=== PATIENT | female | born 1975 | race Two or more races ===

== ENCOUNTER 2017-07-28 20:31 | Emergency (ER) | payer MEDICAID, OTHER ==
[2017-07-28 20:41] VITALS: TEMP 98.1; O2SAT 94
[2017-07-28] MEDS ORDERED: NS 1,000 ML IV ONE (21:54)
[2017-07-28 22:20] LABS: PLATELET COUNT 238 10^3/uL (150-400)
[2017-07-28] MEDS ORDERED: BENZONATATE 100 MG CAP PO ONE (22:49)
[2017-07-28] MEDS ORDERED: ALBUTEROL INH PREPACK MDI TAKEHOME ONE (22:49)
--- NOTE | 2017-07-28 22:54 | EDPHY ---
H & P Time Seen by Provider: 07/28/17 21:50 HPI/ROS: HPI Cough. 42-year-old female by private vehicle with and daughter. This patient reports a nonproductive cough ongoing for 1 week. No other associated signs or symptoms. No sore throat. No fever. She reports however that the cough is not resolved in this time. She denies any myalgias or arthralgias. ROS: Constitutional: No fever, no chills. No weakness. Eyes: No discharge. No changes in vision. ENT: No sore throat. No nasal congestion or rhinorrhea. Respiratory: As above. No shortness of breath. Cardiac: No chest pain, no palpitations. Musculoskeletal: No back pain. No neck pain. No myalgias or arthralgias. Skin: No rashes. Neurological: No headache. No focal weakness or altered sensation. Past medical history: She denies any significant past medical history. No prescription medications. Social history: Nonsmoker. Here with family. No alcohol. Physical Exam: General Appearance: Alert, no distress. This patient is responding to questions appropriately and in full sentences. This patient appears well- hydrated and well-nourished. Eyes: Pupils equal and round no pallor or injection. No lid edema, erythema or injection. Respiratory: There are no retractions, lungs are clear to auscultation with good air movement bilaterally. No tachypnea. Cardiovascular: Regular rate and rhythm. No murmur. Neurological: Motor sensory function is grossly intact. Cranial nerves are normal. Gait is normal. Skin: Warm and dry, no rashes. Musculoskeletal: Neck is supple and nontender. Extremities are symmetrical. All joints range without pain or impingement. Psychiatric: No agitation. No depression. Database: EKG: Imaging: Chest x-ray PA and lateral; the cardiac mediastinal silhouette is unremarkable. Likely airway disease, with possible bilateral superimposed lower lobe pneumonia. No other acute cardiopulmonary disease process noted. Interpreted by me. Procedures: Emergency department course: Vital signs reviewed. She is moderately hypertensive. Vital signs otherwise normal. Chest x-ray obtained and reviewed by myself. 10:50 p.m., patient re-evaluated. Resting comfortably at this time. She has been up and ambulatory to the bathroom. She does not get significantly dyspneic with ambulation. Results of chest x-ray and diagnosis of bronchitis with possible superimposed pneumonia discussed with her. I discussed admission. At this time she does not want to be admitted. She feels comfortable going home. The patient competently engages in shared decision making. They demonstrate capacitance to make decisions. Plan will be to start her on Levaquin in the emergency department now. I will prescribe her this medication to take as an outpatient. She has been instructed to follow up with her primary care physician for re-evaluation within the next 1-2 days. Return to emergency department precautions were thoroughly reviewed with her. All of her questions were answered. She was discharged in good condition. Differential Diagnosis: The differential diagnosis on this patient includes but is not limited to bronchitis, viral syndrome, pneumonia. Influenza unlikely. This represents a partial list of diagnoses considered. These considerations are based on history , physical exam, past history, reassessment and diagnostic testing. Smoking Status: Never smoked Constitutional: Initial Vital Signs Temperature (C) 36.7 C 07/28/17 20:38 Heart Rate 87 07/28/17 20:38 Respiratory Rate 18 07/28/17 20:38 Blood Pressure 141/89 H 07/28/17 20:38 O2 Sat (%) 94 07/28/17 20:38 O2 Delivery Mode Room Air Allergies/Adverse Reactions: No Known Allergies Allergy (Unverified 07/28/17 20:41) Home Medications: Medication Instructions Recorded Benzonatate [Tessalon Pearles] 100 mg PO TID #12 cap 07/28/17 levOFLOXACIN [levAQUIN (*)] 750 mg PO DAILY #5 tab 07/28/17 Medical Decision Making - Diagnostics Imaging Results: Imaging Impressions Chest X-Ray 07/28/17 21:05 Impression: Suspect airways disease with possible superimposed bilateral lower lobe pneumonias. Clinical correlation is recommended. Results called and discussed with Jose E Granado MD on 07/28/2017 at 21: 56 - Data Points Laboratory Results: Laboratory Results 07/28/17 22:10 07/28/17 22:10 07/28/17 07/28/17 22:10 22:10 WBC 6.01 10^3/uL 10^3/uL (3.80-9.50) RBC 4.96 10^6/uL 10^6/uL (4.18-5.33) Hgb 14.5 g/dL g/dL (12.6-16.3) Hct 42.6 % % (38.0-47.0) MCV 85.9 fL fL (81.5-99.8) MCH 29.2 pg pg (27.9-34.1) MCHC 34.0 g/dL g/dL (32.4-36.7) RDW 12.9 % % (11.5-15.2) Plt Count 238 10^3/uL 10^3/uL (150-400) MPV 11.4 fL fL (8.7-11.7) Neut % (Auto) 44.4 % % (39.3-74.2) Lymph % (Auto) 37.9 % % (15.0-45.0) [place] % (Auto) 4.5 % % (4.5-13.0) Eos % (Auto) 12.0 % H % (0.6-7.6) Baso % (Auto) 1.0 % % (0.3-1.7) Nucleat RBC Rel Count 0.0 % % (0.0-0.2) Absolute Neuts (auto) 2.67 10^3/uL 10^3/uL (1.70-6.50) Absolute Lymphs (auto) 2.28 10^3/uL 10^3/uL (1.00-3.00) Absolute Monos (auto) 0.27 10^3/uL L 10^3/uL (0.30-0.80) Absolute Eos (auto) 0.72 10^3/uL H 10^3/uL (0.03-0.40) Absolute Basos (auto) 0.06 10^3/uL 10^3/uL (0.02-0.10) Absolute Nucleated RBC 0.00 10^3/uL 10^3/uL (0-0.01) Immature Gran % 0.2 % % (0.0-1.1) Immature Gran # 0.01 10^3/uL 10^3/uL (0.00-0.10) Sodium 140 mEq/L mEq/L (135-145) Potassium 3.7 mEq/L mEq/L (3.5-5.2) Chloride 105 mEq/L mEq/L (97-110) Carbon Dioxide 21 mEq/l L mEq/l (22-31) Anion Gap 14 mEq/L mEq/L (8-16) BUN 12 mg/dL mg/dL (7-23) Creatinine 1.0 mg/dL mg/dL (0.6-1.0) Estimated GFR > 60 Glucose 111 mg/dL H mg/dL (70-100) Calcium 9.7 mg/dL mg/dL (8.5-10.4) Medications Given: Discontinued Medications Sodium Chloride (Ns) 1,000 mls @ 0 mls/hr IV ONCE ONE; Wide Open PRN Reason: Protocol Stop: 07/28/17 21:55 Last Admin: 07/28/17 22:08 Dose: 1,000 mls Departure - Departure Disposition: Home, Routine, Self-Care Clinical Impression: Bronchitis, Possible pneumonia Condition: Good Instructions: Acute Bronchitis (ED), Pneumonia (ED) Additional Instructions: Read and follow provided instructions. Follow-up with your primary care physician in 1-2 days for re-evaluation as discussed. Take medication as prescribed through entire course of treatment. Albuterol meter dose inhaler: 1-2 puffs every 2-4 hours as needed for cough or shortness of breath. Return to the emergency department for worsening symptoms, worsening cough, difficulty breathing, high fever, weakness or other serious concerns. Referrals: [facility],. [Clinic] - As per Instructions Prescriptions: Benzonatate [Tessalon Pearles] 100 mg PO TID #12 cap levOFLOXACIN [levAQUIN (*)] 750 mg PO DAILY #5 tab
[2017-07-28 23:16] VITALS: BP 121/72; PULSE 83; RESP 16
== END 2017-07-28 23:14 | disposition home or self-care (01) ==
DX: J20.9 Acute bronchitis, unspecified (principal); E86.9 Volume depletion, unspecified

== ENCOUNTER 2017-08-07 18:08 | Observation (INO) | payer OTHER ==
[2017-08-07] MEDS ORDERED: IPRATROPIUM/ALBUTEROL 3 ML DEYVIAL IH ONE (18:45)
--- NOTE | 2017-08-07 18:58 | CPEKG ---
Heart Rate: 80 RR Interval: 750 P-R Interval: 136 QRSD Interval: 86 QT Interval: 372 QTC Interval: 430 P [place]: 58 QRS [place]: 38 T Wave [place]: 2 EKG Severity - NORMAL ECG - EKG Impression: SINUS RHYTHM Electronically Signed By: Jesika Wyatt 07-Aug-2017 23:14:40
[2017-08-07 19:00] LABS: PLATELET COUNT 260 10^3/uL (150-400)
[2017-08-07 19:08] LABS: INR 1.04 (0.83-1.16); PROTIME(PATIENT) 13.8 SEC (12.0-15.0)
[2017-08-07] MEDS ORDERED: predniSONE 20 MG TAB PO ONE (19:26)
[2017-08-07] MEDS ORDERED: ALBUTEROL 60 PUFFS/8 GM MDI IH PRN (19:44)
[2017-08-07] MEDS ORDERED: ONDANSETRON 4 MG/2 ML VIAL IVP PRN (19:44)
[2017-08-07] MEDS ORDERED: ACETAMINOPHEN 325 MG TAB PO PRN (19:44)
[2017-08-07] MEDS ORDERED: ONDANSETRON DISINTEGRATING 4 MG TAB PO PRN (19:44)
[2017-08-07] MEDS ORDERED: guaiFENesin/CODEINE PHOS 10 ML UDCUP PO PRN (19:47)
[2017-08-07] MEDS ORDERED: BENZONATATE 100 MG CAP PO PRN (19:48)
[2017-08-07] MEDS ORDERED: IOPAMIDOL (ISOVUE-300) 100 ML BTL ONE (20:09)
--- NOTE | 2017-08-07 21:36 | EDPHY ---
H & P Stated Complaint: pt dx pna 2 weeks ago/rx levaquin/not better/hypoxic HPI/ROS: Chief complaint: Trouble breathing History of present illness: This is a 42-year-old female who presents to the emergency department for evaluation of trouble breathing. Patient reports she was diagnosed with pneumonia 2 weeks ago at this hospital. She was treated with Levaquin which she has completed. She was starting to feel better but recently symptoms started to worsen. She reports chest congestion and trouble breathing. She was prescribed an inhaler at her last visit but has not been using it regularly. She denies fever, chest pain, pain or swelling in the legs. Review of systems: A 10 point review of systems was obtained and other than described above was negative - Personal History LMP (Females 10-55): 8-14 Days Ago Current Tetanus/Diphtheria Vaccine: Unsure - Medical/Surgical History Hx Asthma: No Hx Chronic Respiratory Disease: No Hx Diabetes: No Hx Cardiac Disease: No Hx Renal Disease: No Hx Cirrhosis: No Hx Alcoholism: No Hx HIV/AIDS: No Hx Splenectomy or Spleen Trauma: No Other PMH: pna - Social History Smoking Status: Never smoked - Physical Exam Exam: General Appearance: Alert, nontoxic. Eyes: Pupils equal and round no pallor or injection. ENT, Mouth: Mucous membranes moist. Respiratory: Patient talking in full sentences. No use of accessory muscles. Diffuse expiratory wheezing noted. Cardiovascular: Regular rate and rhythm. Gastrointestinal: Abdomen is soft and non tender, no masses, bowel sounds normal. Neurological: Alert and oriented x4. No meningismus. Skin: Warm and dry, no rashes. Musculoskeletal: Neck is supple non tender. Extremities are symmetrical, full range of motion. Psychiatric: Patient is oriented X 3, there is no agitation. Constitutional: Initial Vital Signs Temperature (C) 36.5 C 08/07/17 18:16 Heart Rate 87 18 18:16 Respiratory Rate 20 08/07/17 18:16 Blood Pressure 135/89 H 08/07/17 18:16 O2 Sat (%) 85 L 08/07/17 18:16 O2 Delivery Mode Room Air O2 (L/minute) 4 Allergies/Adverse Reactions: No Known Allergies Allergy (Verified 08/07/17 18:15) Home Medications: Medication Instructions Recorded Benzonatate [Tessalon Pearles] 100 mg PO TID #12 cap 07/28/17 levOFLOXACIN [levAQUIN (*)] 750 mg PO DAILY #5 tab 07/28/17 Ibuprofen [Motrin (*)] 200 - 400 mg PO Q6H PRN 08/07/17 Multivitamins [Multivitamin (*)] 1 each PO DAILY 08/07/17 Medical Decision Making - Diagnostics Imaging Results: Imaging Impressions Chest X-Ray 08/07/17 18:41 Impression: 1. Right lower lobe pneumonia. 2. Recommend follow up until clear. Findings and recommendations discussed with Emergency Department Physician Bobbin Loose End Finder, ELIZABETH Beckett, at 1911 hours, on August 07, 2017. Final report concurs with initial preliminary interpretation. Imaging: I viewed and interpreted images myself ED Course/Re-evaluation: Patient is discussed with my secondary supervising physician Dr. James Avila. Patient presents to the emergency department for trouble breathing after recently being diagnosed with pneumonia and treated with Levaquin. On presentation she is nontoxic. However her pulse oximetry on room air is 85%. Physical exam reveals expiratory wheezing. Chest x-ray concerning for persistent pneumonia. Blood studies are obtained and largely unremarkable including a D-dimer. CT of the chest is obtained as reported. Given concern for persistent infection and hypoxia she will be admitted to the hospitalist service for further evaluation and care. Dr. Cho is the admitting physician. He asked that the patient tbe given 60 mg of prednisone orally. He asked that antibiotics not be started until he has evaluated the patient to determine the best course of action. Plan has been discussed with the patient who voiced understanding and agreement with it. Differential Diagnosis: Included but not limited to bronchitis, pneumonia, reactive airway disease, pulmonary embolism - Data Points Laboratory Results: Laboratory Results 08/07/17 18:50 08/07/17 18:50 08/07/17 08/07/17 08/07/17 18:51 18:51 18:50 WBC RBC Hgb Hct MCV MCH MCHC RDW Plt Count MPV Neut % (Auto) Lymph % (Auto) [place] % (Auto) Eos % (Auto) Baso % (Auto) Nucleat RBC Rel Count Absolute Neuts (auto) Absolute Lymphs (auto) Absolute Monos (auto) Absolute Eos (auto) Absolute Basos (auto) Absolute Nucleated RBC Immature Gran % Immature Gran # PT 13.8 SEC SEC (12.0-15.0) INR 1.04 (0.83-1.16) APTT 32.7 SEC SEC (23.0-38.0) D-Dimer VBG Lactic Acid 1.2 mmol/L mmol/L (0.7-2.1) Sodium Potassium Chloride Carbon Dioxide Anion Gap BUN Creatinine Estimated GFR Glucose Calcium Total Bilirubin Procalcitonin 0.02 ng/mL ng/mL (0.02-0.10) Nasal Influenza A PCR Nasal Influenza B PCR RSV (PCR) 08/07/17 08/07/17 08/07/17 18:50 18:50 18:30 WBC 5.85 10^3/uL 10^3/uL (3.80-9.50) RBC 4.79 10^6/uL 10^6/uL (4.18-5.33) Hgb 13.8 g/dL g/dL (12.6-16.3) Hct 40.8 % % (38.0-47.0) MCV 85.2 fL fL (81.5-99.8) MCH 28.8 pg pg (27.9-34.1) MCHC 33.8 g/dL g/dL (32.4-36.7) RDW 13.2 % % (11.5-15.2) Plt Count 260 10^3/uL 10^3/uL (150-400) MPV 11.3 fL fL (8.7-11.7) Neut % (Auto) 50.3 % % (39.3-74.2) Lymph % (Auto) 35.9 % % (15.0-45.0) [place] % (Auto) 4.1 % L % (4.5-13.0) Eos % (Auto) 8.7 % H % (0.6-7.6) Baso % (Auto) 1.0 % % (0.3-1.7) Nucleat RBC Rel Count 0.0 % % (0.0-0.2) Absolute Neuts (auto) 2.94 10^3/uL 10^3/uL (1.70-6.50) Absolute Lymphs (auto) 2.10 10^3/uL 10^3/uL (1.00-3.00) Absolute Monos (auto) 0.24 10^3/uL L 10^3/uL (0.30-0.80) Absolute Eos (auto) 0.51 10^3/uL H 10^3/uL (0.03-0.40) Absolute Basos (auto) 0.06 10^3/uL 10^3/uL (0.02-0.10) Absolute Nucleated RBC 0.00 10^3/uL 10^3/uL (0-0.01) Immature Gran % 0.0 % % (0.0-1.1) Immature Gran # 0.00 10^3/uL 10^3/uL (0.00-0.10) PT INR APTT D-Dimer 0.35 ug/mLFEU ug/mLFEU (0.00-0.50) VBG Lactic Acid Sodium 141 mEq/L mEq/L (135-145) Potassium 3.3 mEq/L L mEq/L (3.5-5.2) Chloride 106 mEq/L mEq/L (97-110) Carbon Dioxide 21 mEq/l L mEq/l (22-31) Anion Gap 14 mEq/L mEq/L (8-16) BUN 9 mg/dL mg/dL (7-23) Creatinine 0.6 mg/dL mg/dL (0.6-1.0) Estimated GFR > 60 Glucose 115 mg/dL H mg/dL (70-100) Calcium 9.5 mg/dL mg/dL (8.5-10.4) Total Bilirubin 0.3 mg/dL mg/dL (0.1-1.4) Procalcitonin Nasal Influenza A PCR Nasal Influenza B PCR RSV (PCR) 08/07/17 18:22 WBC RBC Hgb Hct MCV MCH MCHC RDW Plt Count MPV Neut % (Auto) Lymph % (Auto) [place] % (Auto) Eos % (Auto) Baso % (Auto) Nucleat RBC Rel Count Absolute Neuts (auto) Absolute Lymphs (auto) Absolute Monos (auto) Absolute Eos (auto) Absolute Basos (auto) Absolute Nucleated RBC Immature Gran % Immature Gran # PT INR APTT D-Dimer VBG Lactic Acid Sodium Potassium Chloride Carbon Dioxide Anion Gap BUN Creatinine Estimated GFR Glucose Calcium Total Bilirubin Procalcitonin Nasal Influenza A PCR NEGATIVE FOR FLU A (NEGATIVE) Nasal Influenza B PCR NEGATIVE FOR FLU B (NEGATIVE) RSV (PCR) NEGATIVE FOR RSV (NEGATIVE) Medications Given: Discontinued Medications Albuterol/Ipratropium (Duoneb) 3 ml IH EDNOW ONE Stop: 08/07/17 18:46 Last Admin: 08/07/17 18:50 Dose: 3 ml Prednisone (Prednisone) 60 mg PO EDNOW ONE Stop: 08/07/17 19:27 Last Admin: 08/07/17 19:44 Dose: 60 mg Departure - Departure Disposition: [facility] Acute Clinical Impression: Hypoxia Pneumonia Qualifiers: Pneumonia type: due to unspecified organism Laterality: right Lung location: lower lobe of lung Qualified Code(s): J18.1 - Lobar pneumonia, unspecified organism Condition: Fair
[2017-08-07] MEDS: IPRATROPIUM/ALBUTEROL 3 ML DEYVIAL IH SCH (21:55)
[2017-08-07] MEDS ORDERED: IBUPROFEN 200 MG TAB PO PRN (22:14)
--- NOTE | 2017-08-07 22:18 | PDGENHP ---
History and Physical - Chief Complaint Acute shortness of breath - History of Present Illness Primary care provider: [facility] HPI: 42-year-old female presents with acute shortness of breath characterized as labored breathing associated with nonproductive cough, generalized discomfort , with onset approximately 2 weeks prior, initially alleviated with levofloxacin , then symptoms reoccurred. She reports that she has otherwise been able to complete her activities of daily living and she has not had any overt chest pain. On the day of presentation, the patient came into the emergency department, had an SpO2 of 85%, and was placed on supplemental oxygen. She immediately began to feel better. She then received duo nebs and prednisone, and her expiratory wheezes which were present on arrival, were alleviated. History Information - Allergies/Home Medication List Allergies/Adverse Reactions: No Known Allergies Allergy (Verified 08/07/17 18:15) Home Medications: Ibuprofen [Motrin (*)] 200 - 400 mg PO Q6H PRN 08/07/17 [Last Taken Unknown] Multivitamins [Multivitamin (*)] 1 each PO DAILY 08/07/17 [Last Taken Unknown] I have personally reviewed and updated: family history, medical history, social history, surgical history - Past Medical History Additional medical history: Recent treatment for pneumonia 10 days ago - Surgical History Reports: no pertinent surgical hx - Social History Smoking Status: Never smoked Alcohol Use: None Drug Use: None Additional social history: Physically active work, 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, 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 Review of Systems Review of Systems: ROS: 10pt was reviewed & negative except for what was stated in HPI & below Constitutional: Reports: weakness Respiratory: Reports: cough, shortness of breath Physical Exam Physical Exam: Temp Pulse Resp BP Pulse Ox 37.0 C 68 16 96/66 L 98 08/07/17 22:02 08/07/17 22:02 08/07/17 22:02 08/07/17 22:02 08/07/17 22:02 O2 (L/minute) 2 Constitutional: no apparent distress, appears nourished, not in pain Eyes: PERRL, anicteric sclera, EOMI Ears, Nose, Mouth, Throat: moist mucous membranes, hearing normal, ears appear normal, no oral mucosal ulcers Cardiovascular: regular rate and rhythym, no murmur, rub, or gallop, No edema Respiratory: reduced air movement (Cough triggered on expiration), No expiratory wheeze, No inspiratory crackles, No bronchial breath sounds, No respiratory distress Gastrointestinal: normoactive bowel sounds, soft, non-tender abdomen, no palpable masses Skin: No abrasion, No rash Neurologic: AAOx3, sensation intact bilaterally, No weakness Psychiatric: interacting appropriately, not anxious, not encephalopathic, thought process linear Lab Data & Imaging Review 08/07/17 18:50 08/07/17 18:50 WBC 5.85 10^3/uL (3.80-9.50) 08/07/17 18:50 RBC 4.79 10^6/uL (4.18-5.33) 08/07/17 18:50 Hgb 13.8 g/dL (12.6-16.3) 08/07/17 18:50 Hct 40.8 % (38.0-47.0) 08/07/17 18:50 MCV 85.2 fL (81.5-99.8) 08/07/17 18:50 MCH 28.8 pg (27.9-34.1) 08/07/17 18:50 MCHC 33.8 g/dL (32.4-36.7) 08/07/17 18:50 RDW 13.2 % (11.5-15.2) 08/07/17 18:50 Plt Count 260 10^3/uL (150-400) 08/07/17 18:50 MPV 11.3 fL (8.7-11.7) 08/07/17 18:50 Neut % (Auto) 50.3 % (39.3-74.2) 08/07/17 18:50 Lymph % (Auto) 35.9 % (15.0-45.0) 08/07/17 18:50 [place] % (Auto) 4.1 % (4.5-13.0) L 08/07/17 18:50 Eos % (Auto) 8.7 % (0.6-7.6) H 08/07/17 18:50 Baso % (Auto) 1.0 % (0.3-1.7) 08/07/17 18:50 Nucleat RBC Rel Count 0.0 % (0.0-0.2) 08/07/17 18:50 Absolute Neuts (auto) 2.94 10^3/uL (1.70-6.50) 08/07/17 18:50 Absolute Lymphs (auto) 2.10 10^3/uL (1.00-3.00) 08/07/17 18:50 Absolute Monos (auto) 0.24 10^3/uL (0.30-0.80) L 08/07/17 18:50 Absolute Eos (auto) 0.51 10^3/uL (0.03-0.40) H 08/07/17 18:50 Absolute Basos (auto) 0.06 10^3/uL (0.02-0.10) 08/07/17 18:50 Absolute Nucleated RBC 0.00 10^3/uL (0-0.01) 08/07/17 18:50 Immature Gran % 0.0 % (0.0-1.1) 08/07/17 18:50 Immature Gran # 0.00 10^3/uL (0.00-0.10) 08/07/17 18:50 PT 13.8 SEC (12.0-15.0) 08/07/17 18:50 INR 1.04 (0.83-1.16) 08/07/17 18:50 APTT 32.7 SEC (23.0-38.0) 08/07/17 18:50 D-Dimer 0.35 ug/mLFEU (0.00-0.50) 08/07/17 18:30 VBG Lactic Acid 1.2 mmol/L (0.7-2.1) 08/07/17 18:51 Sodium 141 mEq/L (135-145) 08/07/17 18:50 Potassium 3.3 mEq/L (3.5-5.2) L 08/07/17 18:50 Chloride 106 mEq/L (97-110) 08/07/17 18:50 Carbon Dioxide 21 mEq/l (22-31) L 08/07/17 18:50 Anion Gap 14 mEq/L (8-16) 08/07/17 18:50 BUN 9 mg/dL (7-23) 08/07/17 18:50 Creatinine 0.6 mg/dL (0.6-1.0) 08/07/17 18:50 Estimated GFR > 60 08/07/17 18:50 Glucose 115 mg/dL (70-100) H 08/07/17 18:50 Calcium 9.5 mg/dL (8.5-10.4) 08/07/17 18:50 Total Bilirubin 0.3 mg/dL (0.1-1.4) 08/07/17 18:50 Procalcitonin 0.02 ng/mL (0.02-0.10) 08/07/17 18:51 Nasal Influenza A PCR NEGATIVE FOR FLU A (NEGATIVE) 08/07/17 18:22 Nasal Influenza B PCR NEGATIVE FOR FLU B (NEGATIVE) 08/07/17 18:22 RSV (PCR) NEGATIVE FOR RSV (NEGATIVE) 08/07/17 18:22 Visualized and Interpreted Chest x-ray results: Yes Chest X-Ray results: other (Possible right lower lobe infiltrate) Visualized and Interpreted EKG results: Yes EKG Interpretation: Positive for: other (T-wave inversion in lead 3) Assessment & Plan Assessment: 42-year-old female presents with acute reactive airway exacerbation in the setting of recent pneumonia Plan: 1. Acute reactive airway exacerbation. New problem this provider, further workup indicated. Discussed with Ron Coppola, emergency department provider, he has reported to me the patient's airways sound reactive and wheezy -reviewed outside records including emergency department report by Dr. Jose E Granado from 07/28/2017, reporting the patient had a by lateral lower lobe pneumonia, prescribed levofloxacin -responded well to DuoNeb and prednisone in the emergency department, continue -supportive care with mucolytic, antitussive -rule out persistent pneumonia with procalcitonin level, chest CT -rule out viral precipitant with influenza -hold on antibiotics until the above information has been obtained 2. Hypokalemia. Unclear etiology, provide supplement Diet. Regular Prophylaxis. Low risk patient, SCDs Code. Full Disposition. Anticipated discharge 08/08, pending further workup and clinical stability of above.
[2017-08-07] MEDS ORDERED: POTASSIUM CL 20 MEQ TAB PO ONE (22:26)
[2017-08-07] MEDS: guaiFENesin 600 MG TAB.ER PO SCH (22:45)
[2017-08-08] MEDS: IPRATROPIUM/ALBUTEROL 3 ML DEYVIAL IH SCH ×2 (06:04→12:05)
[2017-08-08 08:07] VITALS: BP 130/75; PULSE 73; RESP 18; TEMP 98.1; O2SAT 94
[2017-08-08] MEDS: guaiFENesin 600 MG TAB.ER PO SCH (08:54)
[2017-08-08] MEDS ORDERED: MULTIVITAMINS 1 EACH TAB PO SCH (09:00)
[2017-08-08] MEDS ORDERED: predniSONE 20 MG TAB PO SCH (09:00)
--- NOTE | 2017-08-08 10:31 | HOSPPROG ---
Hospitalist Progress Note Assessment/Plan: 42-year-old female presents with acute reactive airway exacerbation in the setting of recent pneumonia * acute airway reactive disease exacerbation -duo nebs and prednisone -CT of the chest does not indicate any type of pneumonia -procalcitonin level is stable -was recently treated Levaquin -on room air now * hypokalemia -resolved *plan: dc home with f/u w [facility] Subjective: Bree feels well. Objective: Vital Signs Temp Pulse Resp BP Pulse Ox 36.7 C 73 18 130/75 H 94 08/08/17 08:00 08/08/17 08:00 08/08/17 08:00 08/08/17 08:00 08/08/17 08:00 Laboratory Results 08/08/17 05:33 08/07/17 08/08/17 08/09/17 05:59 05:59 05:59 Intake Total 100 Balance 100 PT 13.8 SEC (12.0-15.0) 08/07/17 18:50 INR 1.04 (0.83-1.16) 08/07/17 18:50 - Physical Exam Constitutional: no apparent distress, appears nourished, not in pain Eyes: PERRL Ears, Nose, Mouth, Throat: hearing normal Cardiovascular: regular rate and rhythym Respiratory: no respiratory distress, expiratory wheeze (few scattered) Gastrointestinal: normoactive bowel sounds Skin: warm Musculoskeletal: full muscle strength Neurologic: AAOx3 Psychiatric: interacting appropriately, not anxious ICD10 Worksheet Patient Problems: Problems Problem Status Onset Hypoxia Acute Pneumonia Acute
--- NOTE | 2017-08-08 12:52 | GDS ---
[f rep st] DISCHARGE SUMMARY DISCHARGE DIAGNOSES: 1. Acute airway reactive disease exacerbation. 2. Hypokalemia. HISTORY OF PRESENT ILLNESS: Briefly, the patient is a very nice, 42-year-old woman who presented in the emergency room with shortness of breath. She was recently treated for pneumonia. Today, she is feeling markedly better. She was started on steroids. HOSPITAL COURSE PER PROBLEM: 1. Acute reactive airway disease. Procalcitonin level was checked, which is stable. CT of the chest was performed, which did not show any lymphadenopathy or any type of infiltrate. She has minimal ground-glass opacities in the bilateral upper lobes. She has mild bronchitis airway disease. She also had a chest x-ray performed that showed a right lower lobe pneumonia. Recommend followup until clear. She is currently on room air. Feels like her symptoms have resolved. She will need to follow up with [facility] and get a followup with repeat chest x-ray to make sure resolution of her pneumonia. 2. Hypokalemia, resolved. DISCHARGE CONDITION: Stable. Blood pressure is 130/75, respiratory rate is 18 , pulse 73, temperature 38.7, O2 sats on room air are 94%. MEDICATIONS AT DISCHARGE: Please see the EMR. DISCHARGE INSTRUCTIONS: 1. Take the prednisone for the next 5 days as ordered. 2. An inhaler has been ordered. 3. To follow up with her primary care provider. /[id number]/MODL MTDD
== END 2017-08-08 13:07 | disposition home or self-care (01) ==
LOC: F3E 21:04
PROVIDERS: ADMIT Internal Medicine; ATTEND Internal Medicine
DX: J45.901 Unspecified asthma with (acute) exacerbation (principal); J18.9 Pneumonia, unspecified organism; E87.6 Hypokalemia
CPT/HCPCS: G0378; J7512; Q9967

== ENCOUNTER 2017-08-18 19:56 | Emergency (ER) | payer OTHER ==
[2017-08-18 20:07] VITALS: RESP 20; TEMP 98.1
--- NOTE | 2017-08-18 20:16 | CPEKG ---
Heart Rate: 87 RR Interval: 690 P-R Interval: 136 QRSD Interval: 76 QT Interval: 352 QTC Interval: 424 P [place]: 32 QRS [place]: 58 T Wave [place]: 5 EKG Severity - NORMAL ECG - EKG Impression: SINUS RHYTHM Electronically Signed By: Sherri Vasquez 18-Aug-2017 22:58:51
[2017-08-18] MEDS ORDERED: IPRATROPIUM/ALBUTEROL 3 ML DEYVIAL IH ONE ×2 (20:28→20:41)
[2017-08-18 20:31] VITALS: O2SAT 96
[2017-08-18] MEDS ORDERED: predniSONE 20 MG TAB PO ONE ×2 (20:41)
--- NOTE | 2017-08-18 20:45 | EDPHY ---
H & P Time Seen by Provider: 08/18/17 20:33 HPI/ROS: CHIEF COMPLAINT: Shortness of breath HISTORY OF PRESENT ILLNESS: 42-year-old female presents with shortness of breath. Onset of shortness of breath and wheezing few hours ago. Associated with some slight chest discomfort and a dry cough. She has had 2 prior similar episodes in the last month and has been seen in this emergency department. She was diagnosed with bronchospasm and given an inhaler. She has not used the inhaler since it was prescribed. She is allergic to cats and recently has been around new cats. No recent URI or fever. REVIEW OF SYSTEMS: Constitutional: No fever, no chills Eyes: No visual changes ENT: No sore throat Gastrointestinal: no vomiting, no abdominal pain Genitourinary: no dysuria Musculoskeletal: No leg pain or swelling Skin: No rash Neurological: No headache, no weakness Psychiatric: No depression Past Medical/Surgical History: Denies Social History: PCP: [facility] Smoking Status: Never smoked Physical Exam: General Appearance: Alert, pleasant, no respiratory distress Eyes: Pupils equal and round, no conjunctival pallor ENT, Mouth: Mucous membranes moist Neck: Normal inspection Respiratory: Diffuse expiratory wheezing Cardiovascular: Regular rate and rhythm Gastrointestinal: Abdomen is soft and nontender Neurological: A&O, nonfocal, normal gait Skin: Warm and dry Extremities: Normal inspection Psychiatric: Mood and affect normal Constitutional: Initial Vital Signs Temperature (C) 36.7 C 08/18/17 20:03 Heart Rate 92 08/18/17 20:03 Respiratory Rate 20 08/18/17 20:03 Blood Pressure 136/86 H 08/18/17 20:03 O2 Sat (%) 89 L 08/18/17 20:03 O2 Delivery Mode Room Air O2 (L/minute) 2 Allergies/Adverse Reactions: No Known Allergies Allergy (Verified 08/18/17 20:02) Home Medications: Medication Instructions Recorded Benzonatate [Tessalon Pearles] 100 mg PO TID #12 cap 07/28/17 Ibuprofen [Motrin (*)] 200 - 400 mg PO Q6H PRN 08/07/17 Multivitamins [Multivitamin (*)] 1 each PO DAILY 08/07/17 Albuterol [Proventil Inhaler HFA 2 puffs IH Q4HRS PRN #1 mdi 08/08/17 (*)] guaiFENesin [Mucinex 600 MG (*)] 600 mg PO BID tab.er 08/08/17 predniSONE 40 mg PO DAILY #10 tablet 08/08/17 Albuterol [Proventil Inhaler HFA 2 puffs IH QID PRN #1 mdi 08/18/17 (*)] Beclomethasone Qvar 40 [Qvar 40 1 puffs IH BID #1 mdi 08/18/17 (*)] predniSONE 40 mg PO DAILY #8 tab 08/18/17 Medical Decision Making - Diagnostics EKG Interpretation: EKG interpreted by me reveals normal sinus rhythm, rate 87, no ST/T changes. Interpretation: normal EKG Imaging Results: Chest X-Ray 08/18/17 20:46 Impression: 1. No acute process. 2. Mild airways disease similar to weeks prior. ED Course/Re-evaluation: This patient presents with recurrent bronchospasm and hypoxia, most likely secondary to exposure to cats. A DuoNeb and prednisone 60 mg orally given. The patient was given instructions about how user inhaler through the hospital marketing copywriter. She did not understand the reason for the previous inhaler prescription and has not used her inhaler at home. Feels much better after the DuoNeb. Lungs are clear to auscultation. Oxygen saturation 93% on room air. Ambulated and maintained a normal oxygen saturation. Will discharge her home with an albuterol inhaler. Prescriptions for Qvar and prednisone dispensed. Differential Diagnosis: includes though not limited to allergic reaction, pneumonia, acute bronchitis, respiratory failure, pulm edema - Data Points Laboratory Results: Laboratory Results 08/18/17 20:27 08/18/17 20:27 Medications Given: Discontinued Medications Albuterol Sulfate (Proventil Inh Prepack) 1 mdi TAKEHOME EDNOW ONE Stop: 08/18/17 22:02 Last Admin: 08/18/17 22:24 Dose: Not Given Albuterol/Ipratropium (Duoneb) 3 ml IH EDNOW ONE Stop: 08/18/17 20:29 Last Admin: 08/18/17 21:02 Dose: Not Given Albuterol/Ipratropium (Duoneb) 3 ml IH EDNOW ONE Stop: 08/18/17 20:42 Last Admin: 08/18/17 21:02 Dose: 3 ml Prednisone (Prednisone) 60 mg PO EDNOW ONE Stop: 08/18/17 20:42 Last Admin: 08/18/17 21:02 Dose: 60 mg Prednisone (Prednisone) 60 mg PO EDNOW ONE Stop: 08/18/17 20:42 Last Admin: 08/18/17 21:02 Dose: Not Given Departure - Departure Disposition: Home, Routine, Self-Care Clinical Impression: Bronchospasm Condition: Good Instructions: Bronchospasm (ED) Additional Instructions: Use the albuterol inhaler 2 puffs every 6 hr as needed for wheezing. Avoid exposure to cats. Use el albuterol 2 pompitas cada 6 horas a keny lo necesite para el braden en [place]. Referrals: NONE *PRIMARY CARE P,. [Primary Care Provider] - As per Instructions Prescriptions: Albuterol [Proventil Inhaler HFA (*)] 2 puffs IH QID PRN #1 mdi PRN Reason: Short Of Breath/Dyspnea Beclomethasone Qvar 40 [Qvar 40 (*)] 1 puffs IH BID #1 mdi predniSONE 40 mg PO DAILY #8 tab Print Language: Finnish
[2017-08-18 21:03] LABS: PLATELET COUNT 291 10^3/uL (150-400)
[2017-08-18 21:35] VITALS: BP 118/72; PULSE 87
[2017-08-18] MEDS ORDERED: ALBUTEROL INH PREPACK MDI TAKEHOME ONE (22:01)
== END 2017-08-18 22:25 | disposition home or self-care (01) ==
DX: J98.01 Acute bronchospasm (principal)
CPT/HCPCS: J7512

== ENCOUNTER 2018-05-21 16:47 | Emergency (ER) | payer OTHER ==
--- NOTE | 2018-05-21 17:08 | EDPHY ---
H & P Stated Complaint: cough, congestion - Personal History LMP (Females 10-55): 22-28 Days Ago Current Tetanus/Diphtheria Vaccine: Yes Current Tetanus Diphtheria and Acellular Pertussis (TDAP): Yes - Medical/Surgical History Hx Asthma: No Hx Chronic Respiratory Disease: Yes Hx Diabetes: No Hx Cardiac Disease: No Hx Renal Disease: No Hx Cirrhosis: No Hx Alcoholism: No Hx HIV/AIDS: No Hx Splenectomy or Spleen Trauma: No Other PMH: reactive airway disease - Social History Smoking Status: Never smoked Time Seen by Provider: 05/21/18 17:07 HPI/ROS: CHIEF COMPLAINT: Dyspnea, cough HISTORY OF PRESENT ILLNESS: 43-year-old female history of reactive airways disease complaining of 2 weeks of URI symptoms, dyspnea, productive cough. Has not been using her albuterol meter dose inhaler. No chest pain. No back pain. No abdominal pain. No flank pain. PRIMARY CARE PROVIDER:[facility] REVIEW OF SYSTEMS: 10 systems reviewed and negative with the exception of the elements mentioned in the history of present illness PAST MEDICAL & SURGICAL HISTORY: reactive airways disease SOCIAL HISTORY: Nonsmoker FAMILY HISTORY: No pertinent family history PHYSICAL EXAM (Prior to examination, patient consented to physical exam, hands were washed and my usual and customary physical exam procedures followed) 1) GENERAL: Well-developed, well-nourished, alert and oriented. Appears to be in no acute distress. 2) HEAD: Normocephalic, atraumatic 3) HEENT: Pupils equal, round, reactive to light bilaterally. Sclera anicteric. Nasopharynx, oropharynx, clear, no lesions. Moist Mucous membranes. Ears bilaterally with normal tympanic membranes. No signs of otitis media or otitis externa 4) NECK: Full range of motion, no meningeal signs. 5) LUNGS: Inspiratory and expiratory wheeze bilaterally. 6) HEART: Regular rate and rhythm, no murmur, no heave, no gallop. 7) ABDOMEN: No guarding, no rebound, no focal tenderness, negative McBurney's, negative Mccarthy's, negative Rovsing's, negative peritoneal sign, 8) MUSCULOSKELETAL: Moving all extremities, no focal areas of tenderness, no obvious trauma. No peripheral edema or discoloration. 9) BACK: No CVA tenderness, no midline vertebral tenderness, no fluctuance, no step-off, no obvious trauma, no visual or palpable abnormality. 10) SKIN: No rash, no petechiae. 11) Psychiatric: Patient is oriented X 3, there is no agitation. DIFFERENTIAL DIAGNOSIS: In no particular order include but limited to pneumonia, bronchitis, acute asthma exacerbation (Paolo Reeves) Constitutional: Initial Vital Signs Temperature (C) 36.6 C 05/21/18 16:51 Heart Rate 106 H 05/21/18 16:51 Respiratory Rate 20 05/21/18 16:51 Blood Pressure 125/70 H 05/21/18 16:51 O2 Sat (%) 88 L 05/21/18 16:51 O2 Delivery Mode Room Air O2 (L/minute) 2 Allergies/Adverse Reactions: cats Allergy (Uncoded 05/21/18 16:50) Home Medications: Medication Instructions Recorded Albuterol [Proventil Inhaler HFA 1 - 2 puffs IH Q4PRN PRN #1 mdi 01/08/18 (*)] Albuterol [Proventil Inhaler HFA 1 - 2 puffs IH Q4PRN PRN #1 mdi 05/21/18 (*)] Azithromycin [Zithromax] 500 mg PO DAILY #1 tablet 05/21/18 Nyquil 05/21/18 Medical Decision Making - Diagnostics Imaging Results: Imaging Impressions Chest X-Ray 05/21/18 17:15 Impression: 1. Prominence of perihilar interstitial markings and peribronchial cuffing. Findings are nonspecific but can be seen with bronchitis, reactive airway disease, or viral process. 2. Poor inspiration with compressive changes at the lung bases. Images reviewed by myself (Paolo Reeves) ED Course/Re-evaluation: 6:16 p.m.: Re-evaluation, will administer further dose of DuoNeb. She is feeling progressive improvement after 1 DuoNeb treatment. She has received Decadron. 6:46 p.m.: Patient has ambulated around the emergency department repeatedly, has no complaints of dyspnea, maintaining saturations 93% on room air. She would like to be discharged home. Reviewed her chest x-ray with her. She is answering questions appropriately, speaking full sentences no signs of respiratory distress. Plan will be discharge home, recommend using her albuterol meter dose inhaler, given azithromycin prescription. Usual and customary respiratory precautions and instructions provided. Care of patient under supervision of secondary supervising physician Dr Julio with whom I discussed case. (Paolo Reeves) - Data Points Laboratory Results: Laboratory Results 05/21/18 17:22 05/21/18 17:22 05/21/18 05/21/18 05/21/18 17:22 17:22 17:22 WBC 7.72 10^3/uL 10^3/uL (3.80-9.50) RBC 4.85 10^6/uL 10^6/uL (4.18-5.33) Hgb 13.8 g/dL g/dL (12.6-16.3) Hct 41.5 % % (38.0-47.0) MCV 85.6 fL fL (81.5-99.8) MCH 28.5 pg pg (27.9-34.1) MCHC 33.3 g/dL g/dL (32.4-36.7) RDW 13.0 % % (11.5-15.2) Plt Count 250 10^3/uL 10^3/uL (150-400) MPV 11.5 fL fL (8.7-11.7) Neut % (Auto) 52.4 % % (39.3-74.2) Lymph % (Auto) 30.6 % % (15.0-45.0) Page % (Auto) 4.9 % % (4.5-13.0) Eos % (Auto) 11.0 % H % (0.6-7.6) Baso % (Auto) 1.0 % % (0.3-1.7) Nucleat RBC Rel Count 0.0 % % (0.0-0.2) Absolute Neuts (auto) 4.04 10^3/uL 10^3/uL (1.70-6.50) Absolute Lymphs (auto) 2.36 10^3/uL 10^3/uL (1.00-3.00) Absolute Monos (auto) 0.38 10^3/uL 10^3/uL (0.30-0.80) Absolute Eos (auto) 0.85 10^3/uL H 10^3/uL (0.03-0.40) Absolute Basos (auto) 0.08 10^3/uL 10^3/uL (0.02-0.10) Absolute Nucleated RBC 0.00 10^3/uL 10^3/uL (0-0.01) Immature Gran % 0.1 % % (0.0-1.1) Immature Gran # 0.01 10^3/uL 10^3/uL (0.00-0.10) PT 13.3 SEC SEC (12.0-15.0) INR 0.99 (0.83-1.16) APTT 32.0 SEC SEC (23.0-38.0) VBG Lactic Acid 0.8 mmol/L mmol/L (0.7-2.1) Sodium Potassium Chloride Carbon Dioxide Anion Gap BUN Creatinine Estimated GFR Glucose Calcium Total Bilirubin 05/21/18 17:22 WBC RBC Hgb Hct MCV MCH MCHC RDW Plt Count MPV Neut % (Auto) Lymph % (Auto) Page % (Auto) Eos % (Auto) Baso % (Auto) Nucleat RBC Rel Count Absolute Neuts (auto) Absolute Lymphs (auto) Absolute Monos (auto) Absolute Eos (auto) Absolute Basos (auto) Absolute Nucleated RBC Immature Gran % Immature Gran # PT INR APTT VBG Lactic Acid Sodium 138 mEq/L mEq/L (135-145) Potassium 3.7 mEq/L mEq/L (3.3-5.0) Chloride 105 mEq/L mEq/L (97-110) Carbon Dioxide 26 mEq/l mEq/l (22-31) Anion Gap 7 mEq/L mEq/L (6-14) BUN 12 mg/dL mg/dL (7-23) Creatinine 0.7 mg/dL mg/dL (0.6-1.0) Estimated GFR > 60 Glucose 107 mg/dL H mg/dL (70-100) Calcium 9.4 mg/dL mg/dL (8.5-10.4) Total Bilirubin 0.2 mg/dL mg/dL (0.1-1.4) Microbiology Results: MICROBIOLOGY 05/21/18 17:30 Nasal, Sinus - Swab Respiratory Panel (PCR) - Final No Organism Detected By Pcr Medications Given: Discontinued Medications Albuterol/Ipratropium (Duoneb) 3 ml IH EDNOW ONE Stop: 05/21/18 17:19 Last Admin: 05/21/18 17:32 Dose: 3 ml Albuterol/Ipratropium (Duoneb) 3 ml IH EDNOW ONE Stop: 05/21/18 18:16 Last Admin: 05/21/18 18:19 Dose: 3 ml Dexamethasone (Decadron Injection) 10 mg IVP EDNOW ONE Stop: 05/21/18 17:22 Last Admin: 05/21/18 17:32 Dose: 10 mg Departure - Departure Disposition: Home, Routine, Self-Care Clinical Impression: Bronchitis Instructions: Acute Bronchitis (ED) Additional Instructions: Return to the emergency department immediately for change in breathing habits, change in voice, change in swallowing habits, change in mental status, or any other symptoms that concern you. Regrese al departamento de emergencias inmediatamente por cambios en los habitos respiratorios, cambio en la voz, cambio en los ambitos de deglucion/ tragar, cambio en el estatus mental, o cualquier otro sintomas que le preocupe. Referrals: Leanne Ireland PA [Primary Care Provider] - 05/24/18 Prescriptions: Albuterol [Proventil Inhaler HFA (*)] 1 - 2 puffs IH Q4PRN PRN #1 mdi PRN Reason: Cough, Moderate Azithromycin [Zithromax] 500 mg PO DAILY #1 tablet Print Language: Russian
[2018-05-21] MEDS ORDERED: IPRATROPIUM/ALBUTEROL 3 ML DEYVIAL IH ONE ×2 (17:18→18:15)
[2018-05-21] MEDS ORDERED: DEXAMETHASONE 10 MG/ML VIAL IVP ONE (17:21)
[2018-05-21 17:39] LABS: PLATELET COUNT 250 10^3/uL (150-400)
[2018-05-21 17:48] LABS: INR 0.99 (0.83-1.16); PROTIME(PATIENT) 13.3 SEC (12.0-15.0)
[2018-05-21 19:08] VITALS: BP 115/75
== END 2018-05-21 19:10 | disposition home or self-care (01) ==
DX: J40 Bronchitis, not specified as acute or chronic (principal)
CPT/HCPCS: 96374; J1100